=== PATIENT | male | born 2000 | race Hispanic/Latino ===

== ENCOUNTER 2025-02-15 20:11 | Emergency (ER) | payer OTHER, SELFPAY ==
[2025-02-15 20:12] VITALS: PULSE 111; RESP 16; TEMP 36.6; O2SAT 98; BMI 38.0
--- NOTE | 2025-02-15 20:28 | EX.ED.GENINJ ---
HPI History of Present Illness Chief Complaint: Head Injury Detail of Chief Complaint: Head injury Informant: patient Narrative Narrative: Patient presents to the emergency department after a head injury. 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 He was wearing a helmet but he thinks maybe the helmet had come off. Did not lose consciousness. He stood up and noted a bunch of blood so comes in for evaluation. Unsure of his last tetanus shot. Denies neck pain or paresthesias. PFSH PFSH Medical History no medical history Allergy/AdvReac Type Severity Reaction Status Date / Time No Known Allergies Allergy Verified 02/15/25 20:14 Family History no significant family his Surgical History no surgical history Social History Smoking Status: Never smoker ROS ROS ED Review of Systems ROS Unobtainable: other Constitutional Constitutional ED: Reports lethargy; Denies chills, fever(s), sweats or weight loss Eyes Eyes: Denies blurry vision, change in vision or diplopia ENT ENT ED: Reports other Details: Patient has left posterior occiput stellate like laceration and hematoma. Total length of laceration measures approximately 8 cm. No bony step-offs or depressions noted. ; Denies rhinorrhea or sore throat Cardiovascular Cardiovascular: Denies chest pain, orthopnea or racing heartbeat Respiratory/Chest Respiratory/Chest: Reports dyspnea and dyspnea on exertion; Denies cough, orthopnea or sputum Gastrointestinal Gastrointestinal: Denies abdominal pain, diarrhea, nausea or vomiting Genitourinary Genitourinary ED: Denies dysuria, hematuria or urinary frequency Musculoskeletal Musculoskeletal: Denies arthralgias, back pain, myalgias or neck pain Integumentary Denies abscess, Abrasions or rash Neurologic Neurologic: Reports headache(s); Denies weakness Psychiatric Psychiatric: Denies anxiety, depression or suicidal thoughts Endocrine Endocrinology: Denies polydipsia, polyphagia or polyuria Hematologic/Lymphatic Hematologic/Lymphatic: Denies easy bleeding, easy bruising or lymphadenopathy Allergic/Immunologic Allergic/Immunologic ED: Denies mouth swelling, tongue swelling or urticaria EXAM Physical Exam Const Vital Signs: 02/15/25 20:12 02/15/25 20:46 Temperature 98 F Temperature Source Oral Pulse Rate 111 H Respiratory Rate 16 Respiratory Effort Normal Respiratory Depth Normal Respiratory Pattern Normal Pulse Ox 98 PROC Procedures Lacerations Scalp laceration: Length: 3.15 in Depth: Sub Q Shape: Stellate Prep: Sterile Conditions and Shure-Clens Laceration repair: Lidocaine with epi, Local and Skin sutures Irrigated (ml): 100 Number of Sutures/Fannie: 8 Suture Information: Ethilon, Simple and 4-0 MDM MDM MDM Narrative Medical decision making narrative: Patient presents with a closed head injury. He was wearing a helmet but he is not sure if the helmet came off when he fell and hit the ice with the back of his head. No loss of consciousness. He is got a complex stellate lacerations to the posterior scalp. CT scan of the brain without contrast and CT cervical spine obtained showed no fractures and no intracranial hemorrhage. Please see procedure note for suture repair of his scalp lacerations. Patient will be referred to primary care physician for follow-up in 10 days for suture removal. To return if increasing pain, redness, swelling, purulent drainage, or condition worsening way. Radiography Diagnostic Testing: Clinical Impression(s) from Imaging Studies Brain CT 02/15/25 20:40 IMPRESSION: No acute intracranial hemorrhage or territorial infarction. Left parietal scalp hematoma without underlying calvarial fracture. No acute fracture or traumatic malalignment of the cervical spine. Bilateral maxillary sinus fluid levels. Given no facial bone fracture of the is favors sinusitis. Reading Location: [facility] Cervical Spine CT 02/15/25 20:40 IMPRESSION: No acute intracranial hemorrhage or territorial infarction. Left parietal scalp hematoma without underlying calvarial fracture. No acute fracture or traumatic malalignment of the cervical spine. Bilateral maxillary sinus fluid levels. Given no facial bone fracture of the is favors sinusitis. Reading Location: [facility] Discharge Plan Triage Chief Complaint: Head Injury ED Provider: Kashif Zavala Dx/Rx/DC Orders Clinical Impression: CHI (closed head injury), Complex laceration of scalp, Concussion Instructions: ED Head Injury (Adult), ED Laceration Scalp Stitches or Fannie Primary Care Provider: Care Physician,No Primary Referrals: Ministerio Dunn MD [Med Staff - [facility]] - 10 Day for suture removal Print Language: Estonian Disposition Disposition: Home, Self Care
--- NOTE | 2025-02-15 20:40 | CT_ITS ---
PROCEDURE: BRAIN/HEAD WITHOUT CONTRAST; SPINE CERVICAL WITHOUT CONTRAS 02/15/2025 REASON FOR EXAM: HEAD INJURY; FALL TECHNIQUE: Procedure Code: CTBR; CTSPC Modality: CT Procedure: BRAIN/HEAD WITHOUT CONTRAST; SPINE CERVICAL WITHOUT CONTRAS Coronal and Sagittal reconstruction series were provided. One or more dose reduction techniques were used (e.g., Automated exposure control, adjustment of the mA and/or kV according to patient size, use of iterative reconstruction technique. RADIATION DOSE SUMMARY: CTDlvol: 44+ 25 mGy DLP: 1414 mGycm FINDINGS: CT head: The ventricles are normal in size and midline in position. No evidence of acute hemorrhage or infarction. No extra-axial blood or fluid collections. Scalp hematoma overlying the left parietal bone. Fluid levels in the bilateral maxillary sinuses. Mastoid air cells are clear. The calvarial vault and skull base are intact. CT cervical spine: No evidence of acute fracture or dislocation. Vertebral body heights and intervertebral disc spaces are maintained. Normal alignment. The lung apices are clear. CT/Spine Cervical without Contras IMPRESSION: No acute intracranial hemorrhage or territorial infarction. Left parietal scalp hematoma without underlying calvarial fracture. No acute fracture or traumatic malalignment of the cervical spine. Bilateral maxillary sinus fluid levels. Given no facial bone fracture of the i s favors sinusitis. Reading [facility] [place]
--- NOTE | 2025-02-15 20:40 | CT_ITS ---
PROCEDURE: BRAIN/HEAD WITHOUT CONTRAST; SPINE CERVICAL WITHOUT CONTRAS 02/15/2025 REASON FOR EXAM: HEAD INJURY; FALL TECHNIQUE: Procedure Code: CTBR; CTSPC Modality: CT Procedure: BRAIN/HEAD WITHOUT CONTRAST; SPINE CERVICAL WITHOUT CONTRAS Coronal and Sagittal reconstruction series were provided. One or more dose reduction techniques were used (e.g., Automated exposure control, adjustment of the mA and/or kV according to patient size, use of iterative reconstruction technique. RADIATION DOSE SUMMARY: CTDlvol: 44+ 25 mGy DLP: 1414 mGycm FINDINGS: CT head: The ventricles are normal in size and midline in position. No evidence of acute hemorrhage or infarction. No extra-axial blood or fluid collections. Scalp hematoma overlying the left parietal bone. Fluid levels in the bilateral maxillary sinuses. Mastoid air cells are clear. The calvarial vault and skull base are intact. CT cervical spine: No evidence of acute fracture or dislocation. Vertebral body heights and intervertebral disc spaces are maintained. Normal alignment. The lung apices are clear. CT/Brain/Head without Contrast IMPRESSION: No acute intracranial hemorrhage or territorial infarction. Left parietal scalp hematoma without underlying calvarial fracture. No acute fracture or traumatic malalignment of the cervical spine. Bilateral maxillary sinus fluid levels. Given no facial bone fracture of the i s favors sinusitis. [facility]
[2025-02-15] MEDS: Lidocaine 1% /Epi 1:100 (20ml) 20 ML Vial 10 ML INFILT (20:45)
[2025-02-15 21:31] VITALS: BP 160/81; PULSE 84; RESP 16; TEMP 36.4; O2SAT 100
== END 2025-02-15 21:32 | disposition home or self-care (01) ==
PROVIDERS: Emergency Provider Emergency Medicine; Visit Provider Emergency Medicine
DX: S01.01XA Laceration without foreign body of scalp, initial encounter (principal); S06.0X0A Concussion without loss of consciousness, initial encounter; W00.0XXA Fall on same level due to ice and snow, initial encounter; Y93.22 Activity, ice hockey; Y92.330 Ice skating rink (indoor) (outdoor) as the place of occurrence of the external cause; Z23 Encounter for immunization
CPT/HCPCS: 12004; 70450; 72125; 90471; 90715; 99282